=== PATIENT | female | born 1990 | race African-American/Black ===

== ENCOUNTER 2017-06-11 16:44 | Emergency (ER) | payer OTHER ==
--- NOTE | 2017-06-11 16:52 | PDOC ---
Rapid Medical Evaluation Chief Complaint: Urinary Problem Time Seen by Provider: 06/11/17 16:48 Medical Evaluation: Allergies Allergy/AdvReac Type Severity Reaction Status Date / Time No Known Allergies Allergy Verified 01/28/15 19:51 06/11/17 16:48 I have performed a brief in-person evaluation of this patient. The patient presents with a chief complaint of: urinary problems Pertinent physical exam findings: n/a I have ordered the following: UA, Ucx The patient will proceed to the ED for further evaluation. Discharge Disposition - Diagnosis Urinary problem - Referrals - Patient Instructions - Post Discharge Activity
[2017-06-11 16:53] VITALS: BP 130/66; PULSE 106; TEMP 98.5; BMI 24.6
[2017-06-11 17:32] LABS: URINE APPEARANCE CLEAR; URINE BILIRUBIN NEGATIVE (<2.0 mg/dL); URINE COLOR YELLOW; URINE GLUCOSE (UA) NEGATIVE (NEGATIVE); URINE KETONE NEGATIVE (NEGATIVE); URINE LEUK ESTERASE 2+ (NEGATIVE); URINE NITRITE NEGATIVE (NEGATIVE); URINE PROTEIN 1+ (NEGATIVE); URINE UROBILINOGEN 4.0 E.U/dl mg/dL (0.2-1.0)
[2017-06-11 17:35] LABS: EPI CELLS RARE /HPF (FEW); URINE MUCUS MANY
--- NOTE | 2017-06-11 17:38 | PDOC ---
History of Present Illness - General Chief Complaint: Urinary Problem Stated Complaint: URINARY PROBLEM Time Seen by Provider: 06/11/17 16:48 History Source: Patient Exam Limitations: No Limitations - History of Present Illness Travel History: No Initial Comments: 06/11/17 17:27 This is a 27-year-old female without significant past medical history who presents emergency Department with 2 days of dysuria, vaginal discharge and vaginal burning. Patient states she was having protected sex on 06/08 when the "condom broke." The next days when she started to exhibit symptoms. She reports only having vaginal sex with his partner over the past 2 months. She denies fevers, chills, abdominal pain nausea, vomiting. Past History - Past Medical History Allergies/Adverse Reactions: Allergies Allergy/AdvReac Type Severity Reaction Status Date / Time No Known Allergies Allergy Verified 06/11/17 16:51 Home Medications: Ambulatory Orders Pantoprazole Sodium [Protonix -] 20 mg PO DAILY #14 tablet.ec 01/28/15 COPD: No - Immunization History Immunization Up to Date: Yes - Suicide/Smoking/Psychosocial Hx Smoking Status: No Smoking History: Never smoked Have you smoked in the past 12 months: No Number of Cigarettes Smoked Daily: 0 Hx Alcohol Use: No Substance Use Type: None Review of Systems - Review of Systems Able to Perform ROS?: Yes Is the patient limited Kyrgyz proficient: No Constitutional: No: Symptoms Reported HEENTM: No: Symptoms Reported Respiratory: No: Symptoms reported Cardiac (ROS): No: Symptoms Reported ABD/GI: No: Symptoms Reported : Yes: See HPI Musculoskeletal: No: Symptoms Reported Integumentary: No: Symptoms Reported Neurological: No: Symptoms reported *Physical Exam - Vital Signs Last Vital Signs Temp Pulse Resp BP Pulse Ox 98.5 F 106 H 20 130/66 99 06/11/17 16:48 06/11/17 16:48 06/11/17 16:48 06/11/17 16:48 06/11/17 16:48 - Physical Exam General Appearance: Yes: Appropriately Dressed. No: Apparent Distress HEENT: positive: Normal ENT Inspection Neck: positive: Trachea midline, Supple Respiratory/Chest: positive: Lungs Clear, Normal Breath Sounds. negative: Respiratory Distress, Accessory Muscle Use Cardiovascular: positive: Regular Rhythm, Regular Rate. negative: Murmur Female Pelvic Exam: positive: normal external exam, normal adnexa, discharge ( green milky). negative: CMT, lesions, Bartholin mass, adnexal tenderness, vaginal bleeding Gastrointestinal/Abdominal: positive: Normal Bowel Sounds, Soft. negative: Tender Musculoskeletal: positive: Normal Inspection. negative: CVA Tenderness Extremity: positive: Normal Capillary Refill, Normal Inspection. negative: Normal Range of Motion, Tender Integumentary: positive: Normal Color, Dry, Warm Neurologic: positive: Alert, Normal Response, Motor Strength 5/5 Medical Decision Making - Medical Decision Making 06/11/17 17:46 A/P: 27-year-old female without significant past medical history who presents with vaginal burning, dysuria and green vaginal discharge for 2 days Abdomen soft nontender nondistended. GERIATRICIAN exam performed with SHERMAN Farmer in the room General exam within normal limits no lesions present. Cervix with positive hemorrhages present. Green cervical discharge present in the vaginal vault. No adnexal tenderness present. Given symptoms likely trichomoniasis infection Ceftriaxone 250 mg I am now Azithromycin 1 g orally now Flagyl 2 g orally now UA, urine culture, urine test, urine GC *DC/Admit/Observation/Transfer Diagnosis at time of Disposition: Trichomoniasis - Discharge Dispostion Disposition: HOME Condition at time of disposition: Stable Admit: No - Referrals Referrals: Castro Xie [Primary Care Provider] - - Patient Instructions Additional Instructions: You been treated today with azithromycin 1 g by mouth for treatment of presumed chlamydia You have been treated with Rocephin 250 mg injection for treatment of presumed gonorrhea You have been treated with Flagyl 2g by mouth for treatment of presumed trichomoniasis The gonorrhea and chlamydia testing will not be completed for the next few days. You may call [phone] and leave message for return phone call with lab results. Be sure to be clear with your name, birthdate, and phone number Always use condoms with the partners Followup with [facility] or PMD in one week for reevaluation and retesting. Avoid sex for the next 1 week. - Post Discharge Activity
[2017-06-11] MEDS ORDERED: AZITHROMYCIN 1 GM PACKET PO ONE (17:39)
[2017-06-11] MEDS ORDERED: metroNIDAZOLE 250 MG TABLET PO ONE (17:39)
[2017-06-11] MEDS ORDERED: AZITHROMYCIN 250 MG TABLET ONE (17:40)
[2017-06-11] MEDS ORDERED: metroNIDAZOLE 250 MG TABLET ONE (17:46)
== END 2017-06-11 18:05 | disposition home or self-care (01) ==
LOC: JERFT 16:44
DX: A59.01 Trichomonal vulvovaginitis (principal)
CPT/HCPCS: 36415; 81003; 81015; 84703; 87070; 87086; 87186; 87205; 87491; 87591; 99281-25

== ENCOUNTER 2018-02-19 13:33 | Emergency (ER) | payer OTHER ==
[2018-02-19 13:39] VITALS: BP 136/90; PULSE 75; TEMP 98; BMI 49.9
--- NOTE | 2018-02-19 14:50 | PDOC ---
History of Present Illness - General Chief Complaint: Headache Stated Complaint: Headache Time Seen by Provider: 02/19/18 13:52 History Source: Patient Exam Limitations: No Limitations - History of Present Illness Initial Comments: 02/19/18 14:39 28 yr female with history of on and off headache for one year. Pt states it is becoming more frequent . Pt denies nausea or vomiting, saw his PMD last month referred to neuro however pt states the neurologist does not take the insurance. Pt denies headache now, states yesterday felt stabbing like pain to top of head lasted about 3 minutes then resolved on own. Timing/Duration: reports: waxing and waning Severity: Yes: mild Past History - Past Medical History Allergies/Adverse Reactions: Allergies Allergy/AdvReac Type Severity Reaction Status Date / Time No Known Allergies Allergy Verified 02/19/18 13:39 Home Medications: Ambulatory Orders Aspirin [ASA -] 81 mg PO DAILY #30 tab.chew 02/19/18 COPD: No - Immunization History Immunization Up to Date: Yes - Suicide/Smoking/Psychosocial Hx Smoking Status: No Smoking History: Never smoked Have you smoked in the past 12 months: No Number of Cigarettes Smoked Daily: 0 Hx Alcohol Use: No Drug/Substance Use Hx: No Substance Use Type: None Neuro Specific PMHX - Complaint Specific PMHX Glaucoma: No Herniated Disk: No Laminectomy: No Migraine: No Multiple Sclerosis: No Neuropathy: No TIA: No Review of Systems - Review of Systems Able to Perform ROS?: Yes Is the patient limited Czech proficient: No Constitutional: No: Symptoms Reported HEENTM: No: Symptoms Reported Respiratory: No: Symptoms reported Cardiac (ROS): No: Symptoms Reported ABD/GI: No: Symptoms Reported : No: Symptoms Reported Integumentary: Yes: Symptoms Reported *Physical Exam - Vital Signs Last Vital Signs Temp Pulse Resp BP Pulse Ox 98 F 75 16 136/90 100 02/19/18 13:34 02/19/18 13:34 02/19/18 13:34 02/19/18 13:34 02/19/18 13:34 - Physical Exam General Appearance: Yes: Nourished, Appropriately Dressed HEENT: positive: EOMI, RISSA Neck: positive: Supple. negative: Tender Respiratory/Chest: positive: Lungs Clear, Normal Breath Sounds Cardiovascular: positive: Regular Rhythm, Regular Rate Musculoskeletal: positive: Normal Inspection Extremity: positive: Normal Capillary Refill, Normal Inspection, Normal Range of Motion Integumentary: positive: Normal Color, Dry, Warm Neurologic: positive: Fully Oriented, Alert, Normal Mood/Affect, Normal Response , Motor Strength 5/5 Moderate Sedation - Procedure Monitoring Vital Signs: Procedure Monitoring Vital Signs Temperature 98 F 02/19/18 13:34 Pulse Rate 75 02/19/18 13:34 Respiratory Rate 16 02/19/18 13:34 Blood Pressure 136/90 02/19/18 13:34 O2 Sat by Pulse Oximetry (%) 100 02/19/18 13:34 Medical Decision Making - Medical Decision Making 02/19/18 14:42 cc: headache on and off for one year more frequent the past few weeks pt has had no imaging pt is neuro intact denies any head trauma neg nvd neg photophobia does not wear glasses 02/19/18 15:38 call placed to neuro air intercept controller 02/19/18 15:48 discussed with air intercept controller neurologist cat scan reviewed place ASA 81mg daily pt is not on any OCP no control at the moment during further discussion Pt reports that she was told by her mother that when she was 1yrs old she had a stroke. 02/19/18 15:58 *DC/Admit/Observation/Transfer Diagnosis at time of Disposition: Headache Qualifiers: Headache type: unspecified Headache chronicity pattern: chronic headache Intractability: intractable Qualified Code(s): R51 - Headache - Discharge Dispostion Disposition: HOME Condition at time of disposition: Good - Prescriptions Prescriptions: Aspirin [ASA -] 81 mg PO DAILY #30 tab.chew - Referrals Referrals: Castro Xie [Primary Care Provider] - Cade Angulo DO [Staff Physician] - - Patient Instructions Additional Instructions: please follow up with the neurologist for further evaluation call Thursday to make appointment take one baby aspirin daily as directed by the neurologist return to ER for any worsening symptoms - Post Discharge Activity
== END 2018-02-19 16:00 | disposition home or self-care (01) ==
LOC: JERFT 13:33 → JER 13:33 → JERFT 16:00
DX: R51 Headache (principal)
CPT/HCPCS: 70450-TC; 84703; 99281-25

== ENCOUNTER 2021-04-03 14:45 | Emergency (ER) | payer OTHER ==
[2021-04-03 15:00] VITALS: BP 123/71; PULSE 80; TEMP 98; BMI 23.0
== END 2021-04-03 17:14 | disposition home or self-care (01) ==
LOC: JERFT 14:45
DX: K05.6 Periodontal disease, unspecified (principal)
CPT/HCPCS: 99281-25

== ENCOUNTER 2021-10-17 21:35 | Emergency (ER) | payer OTHER ==
[2021-10-17 21:44] VITALS: BP 125/80; PULSE 83; RESP 19; TEMP 98.1; BMI 25.4
== END 2021-10-17 22:18 | disposition home or self-care (01) ==
LOC: JERFT 21:35
DX: H11.32 Conjunctival hemorrhage, left eye (principal); J02.9 Acute pharyngitis, unspecified
CPT/HCPCS: 99283-25